=== PATIENT | female | born 1965 | race African-American/Black ===

== ENCOUNTER 2016-10-01 14:53 | Outpatient (CLI) | payer OTHER ==
--- NOTE | 2016-10-01 15:21 | DI ---
Exam: Three views of the left foot Clinical indication: Left foot swelling. Findings: There is likely a small ankle effusion. There has been prior open reduction internal fixation of distal left tibia and fibula fractures. There is at least moderate left ankle joint degenerative osteoarthritic changes. The remainder the visualized bony structures are unremarkable. Impression: 1. Moderate left ankle degenerative osteoarthritic changes. 2. Otherwise negative radiographs of the left foot.
--- NOTE | 2016-10-01 15:23 | DI ---
EXAM: LEFT ANKLE 3 VIEWS HISTORY: Left ankle swelling FINDINGS: Compared to 11/29/2014. Redemonstration of bimalleolar stabilization hardware without no ticeable dislodgement, fracture or loosening. Mild deformity of the distal leg bones consistent wit h healed fractures. Bony fragment of the distal fibula posteriorly is less than completely united, stable. There is moderate arthropathy of the tibiotalar joint. No obvious joint effusion or acute fracture. Diffuse soft tissue edema. IMPRESSION: Postop and arthritic changes with generalized soft tissue edema.
== END 2016-10-01 14:54 | disposition home or self-care (01) ==
LOC: RAD 14:53
PROVIDERS: ATTEND Internal Medicine
DX: M25.472 Effusion, left ankle (principal); Z87.81 Personal history of (healed) traumatic fracture

== ENCOUNTER 2016-12-18 14:33 | Outpatient (CLI) ==
--- NOTE | 2016-12-19 11:43 | MAMMO ---
EXAM: Digital screening mammogram HISTORY: Screening COMPARISON: 10/28/2015 FINDINGS: Digital MLO and CC views of the right and left breast were performed. Computer aided de tection was utilized. There are scattered fibroglandular densities. There is an asymmetry left graham ast medially on the CC view posterior depth. There is no evidence for mass, asymmetry, distortion, or suspicious calcifications in the right breast. IMPRESSION: 1. Asymmetry left breast. Spot compression imaging and possible ultrasound recommended for further evaluation 2. Negative right breast mammogram BIRADS category 0, incomplete
== END 2016-12-18 14:34 | disposition home or self-care (01) ==
LOC: RAD 14:33
PROVIDERS: ATTEND Internal Medicine
DX: Z12.31 Encounter for screening mammogram for malignant neoplasm of breast (principal)
CPT/HCPCS: 77067

== ENCOUNTER 2016-12-26 09:19 | Outpatient (CLI) | payer OTHER ==
--- NOTE | 2016-12-26 10:02 | MAMMO ---
EXAM: Left digital diagnostic mammogram History: Left breast asymmetry. Comparison: Bilateral mammogram 12/18/2016 Findings: Left breast density is scattered. Spot compression view of the left breast in the CC proj ection confirms a 6 mm round posterior medial breast nodule. No suspicious microcalcifications. Impression: Indeterminate medial left breast nodule. Recommend further evaluation with ultrasound. BIRADS 0
--- NOTE | 2016-12-26 10:08 | US ---
EXAM: Left breast ultrasound. History: Left breast nodule. Comparison: Left diagnostic mammogram 12/26/2016 Technique: Multiple sonographic images through the left breast were obtained. Color duplex Doppler w as used to interrogate vascular flow. Findings: At 8 o'clock 19 cm from the nipple just beneath the skin there is a 0.5 cm and complicated cystic lesion with posterior acoustic enhancement. This probably correlates with mammography. Impression: 8 o'clock subcutaneous left breast nodule may represent a sebaceous cyst and is probably benign. Recommend 6-month follow-up mammogram and ultrasound to document stability. BIRADS 3
== END 2016-12-26 09:20 | disposition home or self-care (01) ==
LOC: RAD 09:19
PROVIDERS: ATTEND Internal Medicine
DX: R92.8 Other abnormal and inconclusive findings on diagnostic imaging of breast (principal)

== ENCOUNTER 2017-06-28 09:42 | Outpatient (CLI) ==
--- NOTE | 2017-06-28 10:29 | MAMMO ---
EXAM: Left digital diagnostic mammogram (2-D and 3-D) History: Follow-up left breast mass. Comparison: Left diagnostic mammogram 12/26/2016, bilateral mammogram 12/18/2016 Findings: Left breast density is fatty. CAD was reviewed by the radiologist. Tomosynthesis was per formed. MLO and CC views of the left breast demonstrate a stable small 8 o'clock rounded posterior l eft breast nodule. There are no developing masses and no suspicious microcalcifications. Impression: No change in the eight o'clock left breast nodule. Recommend further evaluation with [facility] [place]. BIRADS 0
--- NOTE | 2017-06-28 10:30 | US ---
EXAM: Left breast ultrasound. History: 6-month follow-up left breast mass. Comparison: Left breast ultrasound 12/26/2016 Technique: Multiple sonographic images through the left breast were obtained. Color duplex Doppler was used to interrogate vascular flow. Findings: 8 o'clock subcutaneous left breasts. Complicated cyst is not significantly changed measur ing 6 mm with internal echoes and posterior acoustic enhancement. No developing masses. Impression: No significant interval change in the benign left breast sebaceous cyst. Recommend retu rn to routine screening mammography schedule. BIRADS 2
== END 2017-06-28 09:43 | disposition home or self-care (01) ==
LOC: RAD 09:42
PROVIDERS: ATTEND Internal Medicine
DX: N63.0 Unspecified lump in unspecified breast (principal)

== ENCOUNTER 2018-04-11 | Outpatient (CLI) | END 2018-04-11 08:36 | disposition home or self-care (01) | DX: N60.02 Solitary cyst of left breast (principal) ==

== ENCOUNTER 2018-08-22 09:53 | Outpatient (CLI) ==
--- NOTE | 2018-08-22 12:35 | MRI ---
EXAM: MRI of the lumbar spine without contrast HISTORY: degenerative disc disease, sharp pain in the lower back. TECHNIQUE: Multiplanar imaging of the lumbar spine was performed using T1, T2, inversion recovery se quences. Comparison MRI of the lumbar spine dated 03/25/2012. FINDINGS: The alignment of the lumbar spine is normal. There is no bone marrow edema. There is no pars defect. The lumbar spinal cord demonstrates normal signal on T2W images. The conus medullaris is located at the L1 level. Five lumbar-type vertebral bodies are identified. The paraspinal soft t issues are normal. Segmental analysis: T12-L1: The central canal and neural foramina appear patent. L1-L2: The central canal and neural foramina appear patent. L2-L3: There is mild disc bulge and facet joint arthropathy resulting in mild narrowing of the centr al canal and neural foramina bilaterally. L3-L4: There is mild disc bulge and mild to moderate facet arthropathy resulting in mild narrowing o f the neural foramina. There is mild narrowing of the central canal. L4-L5: The central canal and lateral recesses appear patent. There is mild to moderate facet arthro mickey and disc bulge resulting in mild narrowing of the neural foramina. L5-S1: The central canal and lateral recesses appear patent. The neural foramina appear adequately patent. IMPRESSION: There is no significant central canal stenosis. There is facet joint arthropathy and disc bulge seen within the lower lumbar spine resulting in mild narrowing of the neural foramina. There is no spondylolisthesis.
== END 2018-08-22 09:54 | disposition home or self-care (01) ==
LOC: RAD 09:53
PROVIDERS: ATTEND Pain Medicine Interventional Pain Medicine
DX: M51.36 Other intervertebral disc degeneration, lumbar region (principal); M51.26 Other intervertebral disc displacement, lumbar region; M47.816 Spondylosis without myelopathy or radiculopathy, lumbar region; M48.061 Spinal stenosis, lumbar region without neurogenic claudication; M51.37 Other intervertebral disc degeneration, lumbosacral region; M51.27 Other intervertebral disc displacement, lumbosacral region; M47.817 Spondylosis without myelopathy or radiculopathy, lumbosacral region

== ENCOUNTER 2018-08-29 11:45 | Emergency (ER) | payer OTHER ==
[2018-08-29 11:54] VITALS: BP 139/89; TEMP 98.6; BMI 46.2
--- NOTE | 2018-08-29 13:04 | ED.PDOC ---
General ED Provider: Dr. UMU KIMBROUGH Chief Complaint: Toe Pain/Injury Stated Complaint: wants to check l big toe for possible fracture after fall. Time Seen by Physician: 11:55 Mode of Arrival: Walk-In Information Source: Patient Exam Limitations: No limitations Primary Care Provider: ALEX BLUE Nursing and Triage Documentation Reviewed and Agree: Yes Does patient meet sepsis criteria?: No System Inflammatory Response Syndrome: Not Applicable Sepsis Protocol: For patient's 13 years and over: Temp is 96.8 and below OR 101 and greater Pulse >90 BPM Resp >20/minute Acutely Altered Mental Status Are patient's symptoms suggestive of a new infection, such as: -Pneumonia -Skin, Soft Tissue -Endocarditis -UTI -Bone, Joint Infection -Implantable Device -Acute Abdominal Infection -Wound Infection -Meningitis -Blood Stream Catheter Infection -Unknown Review of Systems - Review Of Systems Constitutional: Reports: No symptoms Eyes: Reports: No symptoms Ears, Nose, Mouth, Throat: Reports: No symptoms Respiratory: Reports: No symptoms Cardiac: Reports: No symptoms GI: Reports: No symptoms : Reports: No symptoms Musculoskeletal: Reports: Joint pain Skin: Reports: No symptoms Neurological: Reports: No symptoms Endocrine: Reports: No symptoms Hematologic/Lymphatic: Reports: No symptoms All Other Systems: Reviewed and Negative Past Medical History - Past Medical History Previously Healthy: Yes Endocrine: Reports: None Cardiovascular: Reports: None Respiratory: Reports: None Hematological: Reports: None Gastrointestinal: Reports: None Genitourinary: Reports: None Neuro/Psych: Reports: None Musculoskeletal: Reports: None Cancer: Reports: None Last Menstrual Period: unknown - Surgical History General Surgical History: Reports: None - Family History Family History: Reports: None - Social History Smoking Status: Current every day smoker, Light tobacco smoker Hx Substance Use: No Alcohol Screening: Occasionally - Immunizations Tetanus Shot up to Date: Yes Physical Exam - Physical Exam Appearance: Well-appearing Ill-appearing: None Pain Distress: None Eyes: LAUREL, EOMI ENT: Ears normal, Nose normal, Oropharynx normal Neck: Supple Respiratory: Airway patent, Breath sounds clear Cardiovascular: RRR, Pulses normal, No rub GI/: Soft, Nontender Musculoskeletal: Normal strength, ROM intact Skin: Warm, Dry Neurological: Sensation intact Psychiatric: Affect appropriate Critical Care Note - Critical Care Note Total Time (mins): 0 Course - Course Orders, Labs, Meds: Orders Category Date Time Status ANKLE, RIGHT MIN 3 VIEWS Stat RADS 08/29/18 13:26 Completed FOOT, LEFT 3 VIEWS Stat RADS 08/29/18 13:27 Completed Vital Signs: Temp Pulse Resp BP Pulse Ox 08/29/18 11:46 98.6 F 97 H 20 139/89 97 Departure - Departure Time of Disposition: 14:22 Disposition: HOME SELF-CARE Discharge Problem: Toe injury Instructions: Nail Avulsion (ED) Condition: Good Pt referred to PMD for follow-up: Yes IPMP verified?: No Additional Instructions: Acetaminophen 650 prn q 4-6 hours. Allergies/Adverse Reactions: Allergies lisinopril Adverse Reaction (Severe, Verified 08/29/18 11:54) Swelling Pt states swells up and has some difficulty Home Medications: Ambulatory Orders Amlodipine Besylate [Norvasc] 5 mg PO DAILY 08/29/18 Carvedilol [Coreg] 12.5 mg PO BID 08/29/18 Cyclobenzaprine HCl [Flexeril] 10 mg PO BID 08/29/18 Fenofibrate [Triglide] 160 mg PO DAILY 08/29/18 Hydrocodone/Acetaminophen [Hydrocodon-Acetaminoph 7.5-325] 1 each PO QID Levothyroxine Sodium 25 mcg PO DAILY 08/29/18 Phentermine HCl 37.5 mg PO DAILY 08/29/18 Rosuvastatin Calcium [Crestor] 10 mg PO BEDTIME 08/29/18 Venlafaxine HCl [Effexor Xr] 150 mg PO DAILY 08/29/18 Disposition Discussed With: Family
--- NOTE | 2018-08-29 14:07 | DI ---
EXAM: LEFT ANKLE 3 VIEWS HISTORY: Fall, pain FINDINGS: Compared to 10/01/2016. Redemonstration of a stabilization plate over the lower fibula an d a pin and and screw through the medial malleolus/distal tibia. These appear stable. Bones are dem ineralized. There is moderately severe arthropathy of the tibiotalar joint, possibly post-traumatic in nature. Joints are intact. There is no acute fracture at the ankle level identified. No visible joint effusion. See also same day left foot radiography report. IMPRESSION: 1. Postop and degenerative changes of the ankle.
--- NOTE | 2018-08-29 14:08 | DI ---
EXAM: Left foot three views HISTORY: Fall, great toe pain COMPARISON: None FINDINGS: Lucency at the base of the distal phalanx first digit, probably represents a nondisplaced fracture and may be intra-articular. No dislocation. Surgical hardware in the distal tibia and fibul a with associated arthropathy, incompletely imaged. Please refer to separate report radiograph ankle . IMPERSSION: Probable fracture distal phalanx first digit.
== END 2018-08-29 14:38 | disposition home or self-care (01) ==
LOC: ED 11:45
DX: M25.572 Pain in left ankle and joints of left foot (principal); Z72.0 Tobacco use; S99.922A Unspecified injury of left foot, initial encounter
CPT/HCPCS: 99283